=== PATIENT | male | born 1995 | race Caucasian/White ===

== ENCOUNTER 2024-06-18 12:49 | Emergency (ER) | payer BC, OTHER ==
--- NOTE | 2024-06-18 13:12 | ED ---
General Adult HPI - General Stated complaint: [facility] R hand injury Time Seen by Provider: 06/18/24 13:02 Source: patient, RN notes reviewed Mode of arrival: ambulatory Limitations: no limitations - History of Present Illness Initial comments: 29-year-old male presents emergency department complaint of right hand injury. Patient states he was at work he states that there was some plastic stuck in the machine he states he tried to get it out and it came down crushing his hand into a plate. Patient states his tetanus up-to-date within last year. Patient complains of mild diffuse pain with greater pain over the second and third MCP region. Denies any paresthesias he states there is some superficial cuts he does have full range of motion offers no other complaints. - Related Data Previous Rx's Medication Instructions Recorded Ibuprofen [Motrin] 600 mg PO Q8HR PRN #20 tab 06/18/24 Allergies Allergy/AdvReac Type Severity Reaction Status Date / Time No Known Allergies Allergy Verified 06/18/24 13:09 Review of Systems ROS Statement: Those systems with pertinent positive or pertinent negative responses have been documented in the HPI. ROS Other: All systems not noted in ROS Statement are negative. General Exam Limitations: no limitations General appearance: alert, in no apparent distress Head exam: Present: atraumatic, normocephalic, normal inspection Neck exam: Present: normal inspection, full ROM. Absent: tenderness, meningismus, lymphadenopathy Respiratory exam: Present: normal lung sounds bilaterally. Absent: respiratory distress, wheezes, rales, rhonchi, stridor Cardiovascular Exam: Present: regular rate, normal rhythm, normal heart sounds. Absent: systolic murmur, diastolic murmur, rubs, gallop, clicks Extremities exam: Present: other (Right hand multiple abrasions, ecchymosis noted there is tenderness across second third and fourth metacarpal region into the digits.) Course Vital Signs 06/18/24 06/18/24 13:10 15:08 Temperature 97.8 F Pulse Rate 67 69 Respiratory 18 16 Rate Blood Pressure 113/72 129/83 O2 Sat by Pulse 99 98 Oximetry Medical Decision Making - Medical Decision Making Was pt. sent in by a medical professional or institution (, PA, MACHINE OPERATIONS SUPERVISOR, urgent care, hospital, or [facility]...) When possible be specific @ -No Did you speak to anyone other than the patient for history (EMS, parent, family, police, friend...)? What history was obtained from this source @ -No Did you review nursing and triage notes (agree or disagree)? Why? @ -I reviewed and agree with nursing and triage notes Were old charts reviewed (outside hosp., previous admission, EMS record, old EKG, old radiological studies, urgent care reports/EKG's, [facility] records)? Report findings @ -No old charts were reviewed Differential Diagnosis (chest pain, altered mental status, abdominal pain women, abdominal pain men, vaginal bleeding, weakness, fever, dyspnea, syncope, headache, dizziness, GI bleed, back pain, seizure, CVA, palpatations, mental health, musculoskeletal)? @ -hand contusion, hand fracture, crush injury EKG interpreted by me (3pts min.). @ -None X-rays interpreted by me (1pt min.). @ -X-ray right hand shows no acute fracture soft tissue swelling noted CT interpreted by me (1pt min.). @ -None done U/S interpreted by me (1pt. min.). @ -None done What testing was considered but not performed or refused? (CT, X-rays, U/S, labs)? Why? @ -None What meds were considered but not given or refused? Why? @ -None Did you discuss the management of the patient with other professionals (professionals i.e. , PA, MACHINE OPERATIONS SUPERVISOR, lab, RT, psych nurse, director of social work, appellate court clerk, teacher, classification officer, director case)? Give summary @ -No Was smoking cessation discussed for >3mins.? @ -No Was critical care preformed (if so, how long)? @ -No Were there social determinants of health that impacted care today? How? (Homelessness, low income, unemployed, alcoholism, drug addiction, transport ation, low edu. Level, literacy, decrease access to med. care, alf, rehab)? @ -No Was there de-escalation of care discussed even if they declined (Discuss DNR or withdrawal of care, Hospice)? DNR status @ -No What co-morbidities impacted this encounter? (DM, HTN, Smoking, COPD, CAD, Cancer, CVA, ARF, Chemo, Hep., AIDS, mental health diagnosis, sleep apnea, morbid obesity)? @ -None Was patient admitted / discharged? Hospital course, mention meds given and route, prescriptions, significant lab abnormalities, going to OR and other pertinent info. @ -Discharge patient has right hand crush injury, abrasion no acute fracture. Bacitracin applied, analgesics were given. Undiagnosed new problem with uncertain prognosis? @ -No Drug Therapy requiring intensive monitoring for toxicity (Heparin, Nitro, Insulin, Cardizem)? @ -No Were any procedures done? @ -No Diagnosis/symptom? @ -Right hand crush injury, contusion Acute, or Chronic, or Acute on Chronic? @ -Acute Uncomplicated (without systemic symptoms) or Complicated (systemic symptoms)? @ -Uncomplicated Side effects of treatment? @ -No Exacerbation, Progression, or Severe Exacerbation? @ -No Poses a threat to life or bodily function? How? (Chest pain, [place], [place], pneumonia, PE, COPD, DKA, ARF, appy, cholecystitis, CVA, Diverticulitis, Homicidal, Suicidal, threat to staff... and all critical care pts) @ -No Disposition Clinical Impression: Crushing injury of right hand Disposition: HOME SELF-CARE Condition: Stable Instructions (If sedation given, give patient instructions): Crush Injury (ED) Additional Instructions: Please return to the Emergency Department if symptoms worsen or any other concerns. Prescriptions: Ibuprofen [Motrin] 600 mg PO Q8HR PRN #20 tab PRN Reason: Pain Is patient prescribed a controlled substance at d/c from ED?: No Referrals: Simone Leos DO [Primary Care Provider] - 1-2 days Time of Disposition: 13:58
[2024-06-18 13:14] VITALS: TEMP 97.8
--- NOTE | 2024-06-18 13:44 | XR ---
EXAMINATION TYPE: XR hand complete RT DATE OF EXAM: 06/18/2024 1:30 PM COMPARISON: None. CLINICAL INDICATION: Male, 29 years old with history of pain, crush injury, pain TECHNIQUE: 3 view(s) obtained. FINDINGS: Soft tissue swelling is over the dorsum of the metacarpal phalangeal joint space. No acute fractures or dislocations evident. Joint spaces appear preserved. Follow up exams can be performed 7-10 days from acute trauma for continued pain. IMPRESSION: 1. Soft tissue swelling dorsal metacarpal phalangeal joint level. 2. No acute osseous abnormality radiographically apparent [facility], , 06/18/2024 1:42 PM
[2024-06-18] MEDS: BACITRACIN OINT 1 EACH PACKET TOPICAL ONE (14:54)
[2024-06-18] MEDS: ACET/COD 300 MG/30 MG STARTER PACK 6 TAB BTL PO STA (14:54)
[2024-06-18 15:09] VITALS: BP 129/83; PULSE 69; RESP 16
== END 2024-06-18 15:10 | disposition home or self-care (01) ==
LOC: EC 12:49
DX: S67.21XA Crushing injury of right hand, initial encounter (principal); S60.221A Contusion of right hand, initial encounter; W23.0XXA Caught, crushed, jammed, or pinched between moving objects, initial encounter; Y99.0 Civilian activity done for income or pay
CPT/HCPCS: 99283

== ENCOUNTER → 2024-06-26 | Outpatient (CLI) | payer OTHER ==
--- NOTE | 2024-06-26 12:42 | XR ---
EXAMINATION TYPE: XR hand complete RT DATE OF EXAM: 06/26/2024 12:37 PM COMPARISON: Right hand x-ray 8 days earlier CLINICAL INDICATION: Male, 29 years old with history of S67.21XD R hand contusion, pain TECHNIQUE: Frontal, lateral and oblique images of the right hand are obtained. FINDINGS: There is no acute fracture/dislocation evident in the right hand. The joint spaces in the right hand appear within normal limits. Improved soft tissue swelling over the dorsal aspect of the r ight hand at the metatarsal head level. IMPRESSION: There is no acute fracture or dislocation in the right hand. [facility], , 06/26/2024 12:40 PM
== END | disposition home or self-care (01) ==
LOC: RADXRMAIN 12:15
PROVIDERS: ATTEND Emergency Medicine
DX: S67.21XD Crushing injury of right hand, subsequent encounter (principal); X58.XXXD Exposure to other specified factors, subsequent encounter